=== PATIENT | female | born 1995 ===

== ENCOUNTER 2016-11-14 01:28 | Emergency (ER) | payer MEDICAID ==
[2016-11-14 01:29] VITALS: BMI 25.6
[2016-11-14] MEDS ORDERED: Sodium Chloride 0.9% 1,000 ML IV ONE (02:00)
[2016-11-14 02:43] LABS: BASO # 0.1 K/uL (0.0-0.2); BASO % 0.8 % (0.0-2.0); EOS # 0.1 K/uL (0.0-0.7); EOS % 1.2 % (0.0-4.0); HEMATOCRIT 33.2 % (34.0-47.0); LYMPH # 1.3 K/uL (1.0-4.3); LYMPH % 15.7 % (20.0-40.0); MEAN CELL VOLUME 82.9 fL (81.0-99.0); MEAN CORPUSCULAR HEMOGLOBIN 27.3 pg (27.0-31.0); MEAN CORPUSCULAR HGB CONC 32.9 g/dL (33.0-37.0); MEAN PLATELET VOLUME 8.8 fL (7.2-11.7); MONO % 11.7 % (0.0-10.0); NRBC % 0.1 % (0.0-2.0); RED CELL DISTRIBUTION WIDTH 14.4 % (11.5-14.5); WHITE BLOOD COUNT 8.4 K/uL (4.8-10.8)
[2016-11-14 02:47] LABS: RBC URINE 10 /hpf (0-3); URINE BACTERIA MANY (<OCC); URINE BILIRUBIN NEGATIVE (NEGATIVE); URINE BLOOD 1+ (NEGATIVE); URINE COLOR Yellow (YELLOW); URINE GLUCOSE (UA) NORMAL (Normal); URINE KETONE NEGATIVE (NEGATIVE); URINE LEUKOCYTE ESTERASE 2+ Leu/uL (Negative); URINE PROTEIN NEGATIVE (NEGATIVE); URINE UROBILINOGEN NORMAL mg/dL (0.2-1.0); WBC URINE 37 /hpf (0-5)
[2016-11-14 02:50] LABS: CHLORIDE 101 mmol/L (98-107); POTASSIUM 3.4 mmol/L (3.6-5.2); SODIUM 138 mmol/L (132-148)
[2016-11-14 02:52] LABS: GFR AFRICAN-AMERICAN > 60
[2016-11-14 02:53] LABS: ALB/GLOB RATIO 0.9 (1.0-2.1); ALKALINE PHOSPHATASE 79 U/L (38-126); ALT/SGPT 48 U/L (9-52); AST/SGOT 27 U/L (14-36); BILIRUBIN,TOTAL 0.4 mg/dL (0.2-1.3); BLOOD UREA NITROGEN 12 mg/dL (7-17); CARBON DIOXIDE 25 mmol/L (22-30); GLUCOSE,RANDOM 95 mg/dL (65-105); TOTAL PROTEIN 6.9 g/dL (6.3-8.3)
[2016-11-14 02:54] LABS: CALCIUM 8.4 mg/dl (8.6-10.4)
[2016-11-14 03:02] VITALS: O2SAT 100
--- NOTE | 2016-11-14 03:50 | C.PDOC ---
History Of Present Illness <Farzana Frankel - Last Filed: 11/14/16 07:00> <Deborah Poole - Last Filed: 11/16/16 13:54> 21 year old female presents to the ED with complaints of lower back pain , bodyaches with intermittent fever x 2 days and two episodes of vomiting today. Patient also notes dysuria and urinary frequency but denies any sick contacts, vaginal discharge or bleeding. (Farzana Frankel) History Per: Patient History/Exam Limitations: no limitations Onset/Duration Of Symptoms: Days (2 days ), Intermittent Episodes (intermittent episodes of fever and vomiting ) Current Symptoms Are (Timing): Still Present Quality Of Discomfort: "Pain" Severity: Moderate Recent travel outside of the [place]: No <Farzana Frankel - Last Filed: 11/14/16 07:00> <Deborah Poole - Last Filed: 11/16/16 13:54> Time Seen by Provider: 11/14/16 01:59 Chief Complaint (Nursing): Back Pain Past Medical History Reviewed: Historical Data, Nursing Documentation, Vital Signs Family History: States: Unknown Family Hx - Social History Hx Tobacco Use: No Hx Alcohol Use: No Hx Substance Use: No - Immunization History Hx Tetanus Toxoid Vaccination: Yes Hx Influenza Vaccination: No Hx Pneumococcal Vaccination: No <Farzana Frankel - Last Filed: 11/14/16 07:00> Review Of Systems Constitutional: Positive for: Fever (intermittent fever), Other (myalgias) Gastrointestinal: Positive for: Vomiting (2 episodes). Negative for: Nausea, Abdominal Pain, Diarrhea Genitourinary: Positive for: Dysuria, Frequency. Negative for: Vaginal Discharge, Vaginal Bleeding Musculoskeletal: Positive for: Back Pain (lower back pain) <Farzana Frankel - Last Filed: 11/14/16 07:00> Physical Exam - Physical Exam Appears: Non-toxic, No Acute Distress Skin: Warm, Dry Eye(s): bilateral: Normal Inspection, PERRL, EOMI Oral Mucosa: Moist Neck: Normal ROM, No Midline Cervical Tenderness, No Paracervical Tenderness, Supple Cardiovascular: Rhythm Regular Respiratory: Normal Breath Sounds Gastrointestinal/Abdominal: Soft, No Tenderness, No Distention, No Guarding, No Rebound Back: Normal Inspection, No CVA Tenderness Neurological/Psych: Oriented x3 Gait: Steady <Farzana Frankel - Last Filed: 11/14/16 07:00> ED Course And Treatment - Laboratory Results Result Diagrams: 11/14/16 02:39 11/14/16 02:39 O2 Sat by Pulse Oximetry: 100 (room air) Pulse Ox Interpretation: Normal Progress Note: Upon re-evaluation patient is no longer vomiting and is tolerating PO, reports improved pain, afebrile in no distress. Labs d/w pt and plan of care as well as d/c instructions. Venue Coordinator does agree with plan Reevaluation Time: 04:15 Reassessment Condition: Improved <Farzana Frankel - Last Filed: 11/14/16 07:00> - Laboratory Results Result Diagrams: 11/14/16 02:39 11/14/16 02:39 Progress Note: I agree with the clinical impression of this patient. However, I disagree with the antibiotic choice. I attempted to call this patient back the the telephone number on record, but was unsuccessful. I informed Dr. Forte and she states she will make further attempts to call the patient back. <Deborah Poole E - Last Filed: 11/16/16 13:54> Medical Decision Making <Farzana Frankel - Last Filed: 11/14/16 07:00> <Deborah Poole E - Last Filed: 11/16/16 13:54> Medical Decision Making: Lab performed: * Urinalysis Patient given IV fluid hydration as well a pain medicines Tordal, Phenazopyridine, and Nitrofurantoin. Results of urinalysis reveal an infection, these results were discussed with patient and instructed to follow up with PMD. (Farzana Frankel) Disposition Counseled Patient/Family Regarding: Diagnosis, Need For Followup, Rx Given - Disposition Disposition Time: 03:48 <Farzana Frankel - Last Filed: 11/14/16 07:00> <Deborah Poole E - Last Filed: 11/16/16 13:54> - Disposition Referrals: [facility] [Outside] Disposition: HOME/ ROUTINE Condition: STABLE Additional Instructions: Please follow up with PMD or in clinic onmonday Take all meds prescribed Increase PO fluids Return to ER if worse Prescriptions: Ibuprofen [Motrin] 600 mg PO Q6H #30 tab Nitrofurantoin Macrocrystals [Macrobid] 1 cap PO BID #14 cap Ondansetron ODT [Zofran ODT] 1 odt PO BID PRN #6 odt PRN Reason: Nausea/Vomiting Instructions: Acute Pyelonephritis (ED) Print Language: THAI - Clinical Impression Clinical Impression: Pyelonephritis - Scribe Statement The provider has reviewed the documentation as recorded by the Scribe <Farzana Frankel - Last Filed: 11/14/16 07:00> <Deborah Poole - Last Filed: 11/16/16 13:54> - Scribe Statement Linsey Briggs All medical record entries made by the Scribe were at my direction and personally dictated by me. I have reviewed the chart and agree that the record accurately reflects my personal performance of the history, physical exam, medical decision making, and the department course for this patient. I have also personally directed, reviewed, and agree with the discharge instructions and disposition. (Farzana Frankel)
[2016-11-14 04:49] VITALS: BP 112/72; PULSE 86; RESP 18; TEMP 99.9
== END 2016-11-14 05:30 | disposition home or self-care (01) ==
LOC: C.ER 01:28
DX: N12 Tubulo-interstitial nephritis, not specified as acute or chronic (principal); B96.20 Unspecified Escherichia coli [E. coli] as the cause of diseases classified elsewhere
CPT/HCPCS: 80053; 81001; 83690; 84703; 85025; 87086; 96361; 96374; 99285; J1885; J7040